=== PATIENT | male | born 1985 ===

== ENCOUNTER 2017-02-01 12:41 | Observation (INO) | payer BC ==
--- NOTE | 2017-02-01 13:24 | ED PDOC ---
HPI: General Adult Chief Complaint (Provider): leg swelling History Per: Patient <Patty Diehl - Last Filed: 02/01/17 18:22> <Kisha Small - Last Filed: 02/05/17 10:15> Time Seen by Provider: 02/01/17 13:02 Chief Complaint (Nursing): Lower Extremity Problem/Injury Additional Complaint(s): 32-year-old male with no past medical history presents to emergency department with intermittent swelling to bilateral lower extremities that started 2 weeks ago. Patient first noticed swelling after he took a 60 mile bike ride. Patient states that he frequently does long bike rides and has not has swelling after previous rides. He denies any trauma or injury. Patient was seen by his primary doctor last week and had dopplers of both legs that were negative for DVT. Patient states that as of 3 days ago he started to notice left-sided chest pain with slight shortness of breath. He also noticed a feeling of fullness and swelling in his neck. Patient denies any recent travel, he denies any dyspnea on exertion. (Patty Diehl) Past Medical History Reviewed: Historical Data, Nursing Documentation, Vital Signs - Medical History PMH: No Chronic Diseases - Surgical History Surgical History: No Surg Hx - Family History Family History: States: No Known Family Hx - Living Arrangements Living Arrangements: With Family - Social History Current smoker - smoking cessation education provided: No Alcohol: None Drugs: Denies <Patty Diehl - Last Filed: 02/01/17 18:22> <Kisha Small - Last Filed: 02/05/17 10:15> Vital Signs: Last Vital Signs Temp 98.3 F 02/02/17 12:15 Pulse 71 02/02/17 12:15 Resp 16 02/02/17 12:15 BP 129/80 02/02/17 12:15 Pulse Ox 97 02/02/17 12:15 - Home Medications Home Medications: Ambulatory Orders Medication Instructions Recorded No Known Home Med 02/01/17 - Allergies Allergies/Adverse Reactions: Allergies Allergy/AdvReac Type Severity Reaction Status Date / Time No Known Allergies Allergy Verified 02/01/17 12:43 Review of Systems ROS Statement: Except As Marked, All Systems Reviewed And Found Negative Constitutional: Negative for: Fever Cardiovascular: Positive for: Chest Pain, Edema (bilateral legs). Negative for : Palpitations, Light Headedness Respiratory: Positive for: Shortness of Breath. Negative for: Cough, SOB with Exertion, Wheezing Gastrointestinal: Negative for: Nausea, Vomiting Musculoskeletal: Positive for: Other (swelling to both legs) Neurological: Negative for: Headache, Dizziness <Patty Diehl - Last Filed: 02/01/17 18:22> Physical Exam - Reviewed Nursing Documentation Reviewed: Yes Vital Signs Reviewed: Yes - Physical Exam Appears: Positive for: Well, Non-toxic, No Acute Distress Skin: Negative for: Rash Eye Exam: Positive for: Normal appearance, EOMI, PERRL Neck: Positive for: Painless ROM Cardiovascular/Chest: Positive for: Regular Rate, Rhythm Respiratory: Positive for: Decreased Breath Sounds. Negative for: Respiratory Distress Gastrointestinal/Abdominal: Positive for: Normal Exam, Soft. Negative for: Tenderness Back: Positive for: Normal Inspection. Negative for: L CVA Tenderness, R CVA Tenderness Extremity: Positive for: Other (edema noted to feet and calves bilaterally, tenderness to calves bilaterally, normal distal sensation, palpable DP pulses bilaterally) Neurologic/Psych: Positive for: Alert, Oriented <Patty Diehl - Last Filed: 02/01/17 18:22> - Laboratory Results Result Diagrams: 02/01/17 13:41 02/01/17 13:41 - ECG O2 Sat by Pulse Oximetry: 98 Pulse Ox Interpretation: Normal - Other Rad bedside chest X-Ray: Interpreted by Me, Viewed By Me, Read By Radiologist X-Ray Interpretation: no active disease CT chest X-Ray: Read By Radiologist X-Ray Interpretation: see below Doppler of both legs X-Ray: Read By Radiologist X-Ray Interpretation: see below <Patty Diehl - Last Filed: 02/01/17 18:22> - Laboratory Results Result Diagrams: 02/01/17 13:41 02/01/17 13:41 <Kisha Small - Last Filed: 02/05/17 10:15> - ECG Interpretation Of ECG: NSR 73 bpm, RAD, reviewed by PA and ED attending. (Patty Diehl) Medical Decision Making <Patty Diehl - Last Filed: 02/01/17 18:22> <Kisha Small - Last Filed: 02/05/17 10:15> Medical Decision Makin32 year old chest pain and leg swelling Plan: CBC CMP Trop BNP CPK UA CXR EKG D-Dimer elevated - bilateral lower extremities dopplers ordered along with CT chest, NS at 125 ml/hr ordered. Doppler: Mildly enlarged lymph nodes seen at the left groin measures 1.7 x 0.6 centimeter. IMPRESSION: No evidence of deep venous thrombosis. CT: IMPRESSION: No evidence of pulmonary embolus. Small opacity at the right lung base may represent atelectasis. Small bilateral pleural effusions larger on the right. Mild cardiomegaly. BNP is 683 Trop is negative CPK is 306 Case discussed in detail with supervising ED attendings Dr. Small and Dr. Vora. Patient will be admitted to medicine building energy consultant, cardiac echo ordered. Patient's PMD is in [facility], patient was admitted to medicine building energy consultant, Dr. Roth. He states to admit to Obs-Tele. Cardiac consult ordered for Dr. Verduzco, building energy consultant cardiology, as per Dr. Roth. Patient agrees with admission, all questions answered. (Patty Diehl) Disposition - Patient ED Disposition Is Patient to be Admitted: Yes - Disposition Disposition Time: 16:33 - Pt Status Changed To: Hospital Disposition Of: Observation - POA Present On Arrival: None <Patty Diehl - Last Filed: 02/01/17 18:22> <Kisha Small - Last Filed: 02/05/17 10:15> - Clinical Impression Clinical Impression: Chest pain, Pleural effusion - Disposition Condition: FAIR Results <Patty Diehl - Last Filed: 02/01/17 18:22> <Kisha Small - Last Filed: 02/05/17 10:15> - Lab Results Lab Results: 02/01/17 02/01/17 02/01/17 14:59 13:41 13:41 WBC 7.3 RBC 4.95 Hgb 14.6 Hct 44.4 MCV 89.7 MCH 29.5 MCHC 32.9 L RDW 13.0 Plt Count 204 MPV 9.1 Neut % (Auto) 61.2 Lymph % (Auto) 25.5 [place] % (Auto) 10.8 H Eos % (Auto) 2.1 Baso % (Auto) 0.4 Neut # 4.5 Lymph # 1.9 [place] # 0.8 Eos # 0.2 Baso # 0.0 D-Dimer, Quantitative 3.69 H Sodium Potassium Chloride Carbon Dioxide Anion Gap BUN Creatinine Est GFR ( Amer) Est GFR (Non-Af Amer) Random Glucose Calcium Total Bilirubin AST ALT Alkaline Phosphatase Total Creatine Kinase Troponin I NT-Pro-B Natriuret Pep Total Protein Albumin Globulin Albumin/Globulin Ratio Urine Color Yellow Urine Clarity Clear Urine pH 6.0 Ur Specific [place] 1.022 Urine Protein >=500 Urine Glucose (UA) Neg Urine Ketones Negative Urine Blood Small Urine Nitrate Negative Urine Bilirubin Negative Urine Urobilinogen 0.2-1.0 Ur Leukocyte Esterase Neg Urine RBC (Auto) 9 H Urine Microscopic WBC 2 02/01/17 13:41 WBC RBC Hgb Hct MCV MCH MCHC RDW Plt Count MPV Neut % (Auto) Lymph % (Auto) [place] % (Auto) Eos % (Auto) Baso % (Auto) Neut # Lymph # [place] # Eos # Baso # D-Dimer, Quantitative Sodium 139 Potassium 4.4 Chloride 105 Carbon Dioxide 25 Anion Gap 13 BUN 22 H Creatinine 1.2 Est GFR ( Amer) > 60 Est GFR (Non-Af Amer) > 60 Random Glucose 88 Calcium 8.6 Total Bilirubin 0.4 AST 69 H ALT 140 H Alkaline Phosphatase 76 Total Creatine Kinase 306 H Troponin I < 0.0120 NT-Pro-B Natriuret Pep 683 H Total Protein 6.1 L Albumin 3.4 L Globulin 2.7 Albumin/Globulin Ratio 1.3 Urine Color Urine Clarity Urine pH Ur Specific [place] Urine Protein Urine Glucose (UA) Urine Ketones Urine Blood Urine Nitrate Urine Bilirubin Urine Urobilinogen Ur Leukocyte Esterase Urine RBC (Auto) Urine Microscopic WBC
[2017-02-01 13:55] LABS: ALKALINE PHOSPHATASE 76 U/L (38-126); ALT/SGPT 140 U/L (21-72); AST/SGOT 69 U/L (17-59); BILIRUBIN,TOTAL 0.4 mg/dl (0.2-1.3); BLOOD UREA NITROGEN 22 mg/dl (9-20); CALCIUM 8.6 mg/dL (8.4-10.2); CARBON DIOXIDE 25 mmol/L (22-30); CHLORIDE 105 mmol/L (98-107); GFR AFRICAN-AMERICAN > 60; GLUCOSE,RANDOM 88 mg/dL (75-110); POTASSIUM 4.4 MMOL/L (3.6-5.0); SODIUM 139 mmol/l (132-148); TOTAL PROTEIN 6.1 G/DL (6.3-8.2)
--- NOTE | 2017-02-01 13:55 | US ---
PROCEDURE: Bilateral lower extremity venous duplex Doppler. HISTORY: pain and swelling to calves bilaterally COMPARISON: None available. TECHNIQUE: Bilateral common femoral, superficial femoral, popliteal and posterior tibial veins were evaluated. Flow was assessed with color Doppler, compressibility, assessment of phasic flow and augmentation response. FINDINGS: COMMON FEMORAL VEIN: Right CFV: Unremarkable. Left CFV: Unremarkable. SUPERFICIAL FEMORAL VEIN: Right SFV: Unremarkable. Left SFV: Unremarkable. POPLITEAL VEIN: Right Popliteal: Unremarkable. Left Popliteal: Unremarkable. POSTERIOR TIBIAL VEIN: Right PTV: Unremarkable. Left PTV: Unremarkable. OTHER FINDINGS: Mildly enlarged lymph nodes seen at the left groin measures 1.7 x 0.6 centimeter. IMPRESSION: No evidence of deep venous thrombosis.
[2017-02-01 14:00] LABS: BASO % 0.4 % (0.0-2.0); EOS # 0.2 K/uL (0.0-0.7); EOS % 2.1 % (0.0-4.0); HEMATOCRIT 44.4 % (35.0-51.0); LYMPH # 1.9 K/uL (1.0-4.3); LYMPH % 25.5 % (20.0-40.0); MEAN CELL VOLUME 89.7 fl (80.0-94.0); MEAN CORPUSCULAR HEMOGLOBIN 29.5 pg (27.0-31.0); MEAN CORPUSCULAR HGB CONC 32.9 g/dL (33.0-37.0); MEAN PLATELET VOLUME 9.1 fl (7.2-11.7); MONO # 0.8 K/uL (0.0-0.8); MONO % 10.8 % (0.0-10.0); NEUT # 4.5 K/uL (1.8-7.0); NEUT % 61.2 % (50.0-75.0); WHITE BLOOD COUNT 7.3 K/uL (4.8-10.8)
[2017-02-01 14:04] LABS: ALB/GLOB RATIO 1.3 (1.0-2.1)
--- NOTE | 2017-02-01 14:34 | RAD ---
HISTORY: chest pain COMPARISON: No prior. FINDINGS: LUNGS: No active pulmonary disease. PLEURA: No significant pleural effusion identified, no pneumothorax apparent. CARDIOVASCULAR: Normal. OSSEOUS STRUCTURES: No significant abnormalities. VISUALIZED UPPER ABDOMEN: Normal. OTHER FINDINGS: None. IMPRESSION: No active disease.
[2017-02-01] MEDS ORDERED: Sodium Chloride 0.9% 1,000 ML IV STA (14:41)
[2017-02-01 15:10] LABS: RBC URINE 9 /hpf (0-3); URINE BILIRUBIN NEGATIVE (NEGATIVE); URINE BLOOD SMALL (NEGATIVE); URINE COLOR YELLOW (YELLOW); URINE GLUCOSE (UA) NEG (Normal); URINE KETONE NEGATIVE (NEGATIVE); URINE LEUKOCYTE ESTERASE NEG Leu/uL (Negative); URINE PROTEIN >=500 mg/dL (NEGATIVE); URINE UROBILINOGEN 0.2-1.0 mg/dL (0.2-1.0); WBC URINE 2 /hpf (0-5)
--- NOTE | 2017-02-01 15:47 | CT ---
PROCEDURE: CT Chest with contrast (Pulmonary Angiogram) HISTORY: chest pain, shortness of breath, leg edema COMPARISON: None available. TECHNIQUE: Axial computed tomography images were obtained of the chest in the pulmonary arterial phase of enhancement. Coronal and sagittal reformatted images were created and reviewed. Intravenous contrast dose: 95 mL Visipaque 320 Radiation dose: Total exam DLP = 350.88 mGy-cm. This CT exam was performed using one or more of the following dose reduction techniques: Automated exposure control, adjustment of the mA and/or kV according to patient size, and/or use of iterative reconstruction technique. FINDINGS: PULMONARY ARTERIES: Unremarkable. No pulmonary embolism. AORTA: No acute findings. No thoracic aortic aneurysm. LUNGS: Small opacities at the right lung base may represent atelectasis. Otherwise no evidence of acute pathology in the lungs. PLEURAL SPACES: Small bilateral pleural effusion larger on the right. HEART: Mild cardiomegaly. LYMPH NODES: No lymphadenopathy. BONES, CHEST WALL: Unremarkable. No fracture or destructive lesion OTHER FINDINGS: Unremarkable. IMPRESSION: No evidence of pulmonary embolus. Small opacity at the right lung base may represent atelectasis. Small bilateral pleural effusions larger on the right. Mild cardiomegaly.
--- NOTE | 2017-02-02 06:53 | CP.PCM.CON ---
History of Present Illness - History of Present Illness History of Present Illness: 32-year-old male with no past medical history presents to emergency department with intermittent swelling to bilateral lower extremities that started 2 weeks ago. Patient first noticed swelling after he took a 60 mile bike ride. Patient states that he frequently does long bike rides and has not has swelling after previous rides. The swelling is usually worse at the end of the day / less in the AM This AM there is no edema Patient was seen by his primary doctor last week and had dopplers of both legs that were negative for DVT. Patient states that as of 3 days ago he started to notice left-sided chest pain described as sharp stabbing no relation to exertion Troponin: neg BNP: 683 EKG: WNL Echo: pending CXR: WNL / no pleural effusions >Total Protein: 6.1 !! >Albumin: 3.4 !! Past Patient History - Past Medical History & Family History Past Medical History?: No - Past Social History Smoking Status: Never Smoked - CARDIAC Hx Cardiac Disorders: No - PULMONARY Hx Respiratory Disorders: No - NEUROLOGICAL Hx Neurological Disorder: No - HEENT Hx HEENT Problems: No - RENAL Hx Chronic Kidney Disease: No - ENDOCRINE/METABOLIC Hx Endocrine Disorders: No - HEMATOLOGICAL/ONCOLOGICAL Hx Blood Disorders: No - INTEGUMENTARY Hx Dermatological Problems: No - MUSCULOSKELETAL/RHEUMATOLOGICAL Hx Musculoskeletal Disorders: No Hx Falls: No - GENITOURINARY/GYNECOLOGICAL Hx Genitourinary Disorders: No - PSYCHIATRIC Hx Psychophysiologic Disorder: No Hx Substance Use: No - SURGICAL HISTORY Hx Surgeries: No - ANESTHESIA Hx Anesthesia: No Meds Allergies/Adverse Reactions: Allergies Allergy/AdvReac Type Severity Reaction Status Date / Time No Known Allergies Allergy Verified 02/01/17 12:43 - Medications Medications: Current Medications Aspirin (Ecotrin) 81 mg PO DAILY [facility] Last Admin: 02/01/17 23:37 Dose: 81 mg Enoxaparin Sodium (Lovenox) 40 mg SC DAILY [facility] PRN Reason: Protocol Physical Exam - Respiratory Exam Respiratory Exam: NORMAL BREATHING PATTERN - Cardiovascular Exam Cardiovascular Exam: REGULAR RHYTHM Results - Vital Signs Recent Vital Signs: Last Vital Signs Temp 97.8 F 02/02/17 05:22 Pulse 59 L 02/02/17 05:22 Resp 19 02/02/17 05:22 BP 132/72 02/02/17 05:22 Pulse Ox 95 02/02/17 05:22 - Labs Result Diagrams: 02/01/17 13:41 02/01/17 13:41 Labs: Laboratory Results - last 24 hr 02/01/17 23:41 Troponin I < 0.0120 Assessment & Plan (1) Pedal edema Assessment and Plan: Patient is to have Echo today/ will review Also Pt's Protein and Albumin levels are low ? Status: Acute (2) Chest pain Assessment and Plan: Doubt that this c/o chest pain is cardiac in nature Status: Acute
[2017-02-02] MEDS ORDERED: Dextrose 5%/0.9% NS 1,000 ML IV SCH (07:15)
[2017-02-02 08:02] VITALS: RESP 16; TEMP 98.3
[2017-02-02] MEDS ORDERED: Enoxaparin 40 mg Syringe SC SCH (09:00)
[2017-02-02 12:16] VITALS: BP 129/80; PULSE 71; O2SAT 97
--- NOTE | 2017-02-02 12:21 | CARD ---
APPROVED REPORT EKG Measurement Heart [id number] SC 130P60 [id number] <Conclusion> Normal sinus rhythm Incomplete right bundle branch block Borderline ECG
--- NOTE | 2017-02-02 12:30 | CARD ---
APPROVED REPORT EKG Measurement Heart [id number] ND 124P58 [id number] <Conclusion> Normal sinus rhythm Possible Left atrial enlargement Rightward axis RSR' or QR pattern in V1 suggests right ventricular conduction delay Borderline ECG
--- NOTE | 2017-02-02 12:31 | CARD ---
APPROVED REPORT EKG Measurement Heart [id number] TN 134P44 [id number] <Conclusion> Normal sinus rhythm Normal ECG excessive baseline artefact
--- NOTE | 2017-02-02 13:15 | CP.PCM.DIS ---
Provider - Provider Date of Admission: 02/01/17 18:03 Attending physician: Azael Roth MD Time Spent in preparation of Discharge (in minutes): 30 Diagnosis - Discharge Diagnosis (1) Rhabdomyolysis Status: Acute (2) Chest pain Status: Acute (3) Pedal edema Status: Acute Hospital Course - Lab Results Lab Results: Most Recent Lab Values WBC 7.3 K/uL (4.8-10.8) 02/01/17 13:41 RBC 4.95 Mil/uL (4.40-5.90) 02/01/17 13:41 Hgb 14.6 g/dL (12.0-18.0) 02/01/17 13:41 Hct 44.4 % (35.0-51.0) 02/01/17 13:41 MCV 89.7 fl (80.0-94.0) 02/01/17 13:41 MCH 29.5 pg (27.0-31.0) 02/01/17 13:41 MCHC 32.9 g/dL (33.0-37.0) L 02/01/17 13:41 RDW 13.0 % (11.5-14.5) 02/01/17 13:41 Plt Count 204 K/uL (130-400) 02/01/17 13:41 MPV 9.1 fl (7.2-11.7) 02/01/17 13:41 Neut % (Auto) 61.2 % (50.0-75.0) 02/01/17 13:41 Lymph % (Auto) 25.5 % (20.0-40.0) 02/01/17 13:41 [place] % (Auto) 10.8 % (0.0-10.0) H 02/01/17 13:41 Eos % (Auto) 2.1 % (0.0-4.0) 02/01/17 13:41 Baso % (Auto) 0.4 % (0.0-2.0) 02/01/17 13:41 Neut # 4.5 K/uL (1.8-7.0) 02/01/17 13:41 Lymph # 1.9 K/uL (1.0-4.3) 02/01/17 13:41 [place] # 0.8 K/uL (0.0-0.8) 02/01/17 13:41 Eos # 0.2 K/uL (0.0-0.7) 02/01/17 13:41 Baso # 0.0 K/uL (0.0-0.2) 02/01/17 13:41 D-Dimer, Quantitative 3.69 mg/L FEU (0-0.50) H 02/01/17 13:41 Sodium 139 mmol/l (132-148) 02/01/17 13:41 Potassium 4.4 MMOL/L (3.6-5.0) 02/01/17 13:41 Chloride 105 mmol/L (98-107) 02/01/17 13:41 Carbon Dioxide 25 mmol/L (22-30) 02/01/17 13:41 Anion Gap 13 (10-20) 02/01/17 13:41 BUN 22 mg/dl (9-20) H 02/01/17 13:41 Creatinine 1.2 mg/dL (0.8-1.5) 02/01/17 13:41 Est GFR ( Amer) > 60 02/01/17 13:41 Est GFR (Non-Af Amer) > 60 02/01/17 13:41 Random Glucose 88 mg/dL (75-110) 02/01/17 13:41 Calcium 8.6 mg/dL (8.4-10.2) 02/01/17 13:41 Total Bilirubin 0.4 mg/dl (0.2-1.3) 02/01/17 13:41 AST 69 U/L (17-59) H 02/01/17 13:41 ALT 140 U/L (21-72) H 02/01/17 13:41 Alkaline Phosphatase 76 U/L (38-126) 02/01/17 13:41 Total Creatine Kinase 306 U/L (55-170) H 02/01/17 13:41 Troponin I 0.0150 ng/mL (0.00-0.120) 02/02/17 07:15 NT-Pro-B Natriuret Pep 683 pg/ml (0-450) H 02/01/17 13:41 Total Protein 6.1 G/DL (6.3-8.2) L 02/01/17 13:41 Albumin 3.4 g/dL (3.5-5.0) L 02/01/17 13:41 Globulin 2.7 gm/dL (2.2-3.9) 02/01/17 13:41 Albumin/Globulin Ratio 1.3 (1.0-2.1) 02/01/17 13:41 Urine Color Yellow (YELLOW) 02/01/17 14:59 Urine Clarity Clear (Clear) 02/01/17 14:59 Urine pH 6.0 (5.0-8.0) 02/01/17 14:59 Ur Specific [place] 1.022 (1.003-1.030) 02/01/17 14:59 Urine Protein >=500 mg/dL (NEGATIVE) 02/01/17 14:59 Urine Glucose (UA) Neg mg/dL (Normal) 02/01/17 14:59 Urine Ketones Negative mg/dL (NEGATIVE) 02/01/17 14:59 Urine Blood Small (NEGATIVE) 02/01/17 14:59 Urine Nitrate Negative (NEGATIVE) 02/01/17 14:59 Urine Bilirubin Negative (NEGATIVE) 02/01/17 14:59 Urine Urobilinogen 0.2-1.0 mg/dL (0.2-1.0) 02/01/17 14:59 Ur Leukocyte Esterase Neg [place]/uL (Negative) 02/01/17 14:59 Urine RBC (Auto) 9 /hpf (0-3) H 02/01/17 14:59 Urine Microscopic WBC 2 /hpf (0-5) 02/01/17 14:59 - Hospital Course Hospital Course: pedal edema and chest pain resolved Discharge Exam - Head Exam Head Exam: ATRAUMATIC, NORMAL INSPECTION, NORMOCEPHALIC - Eye Exam Eye Exam: EOMI, Normal appearance, PERRL Pupil Exam: NORMAL ACCOMODATION, PERRL - GI/Abdominal Exam GI & Abdominal Exam: Normal Bowel Sounds - Rectal Exam Rectal Exam: NORMAL INSPECTION - Neurological Exam Neurological exam: Alert, CN II-XII Intact, Normal Gait, Oriented x3, Reflexes Normal - Psychiatric Exam Psychiatric exam: Normal Affect, Normal Mood - Skin Skin Exam: Dry, Intact, Normal Color, Warm Discharge Plan - Follow Up Plan Condition: FAIR Disposition: HOME/ ROUTINE Patient education suggested?: Yes Additional Instructions: discharge home today follow up with pmd advised to request copy of echo via medical records
--- NOTE | 2017-02-02 13:25 | CARD ---
APPROVED REPORT EXAM: Two-dimensional and M-mode echocardiogram with Doppler and color Doppler. Other Information Quality : ExcellentRhythm : NSR INDICATION Chest Pain Elevated BNP 2D DIMENSIONS IVSd1.07 (0.7-1.1cm)LVDd4.89 (3.9-5.9cm) LVOT Diameter2.03 (1.8-2.4cm)PWd1.05 (0.7-1.1cm) IVSs1.10 (0.8-1.2cm)LVDs3.71 (2.5-4.0cm) FS (%) 24.2 %PWs0.77 (0.8-1.2cm) M-Mode DIMENSIONS Left Atrium (MM)4.00 (2.5-4.0cm)IVSd0.74 (0.7-1.1cm) Aortic Root2.65 (2.2-3.7cm)LVDd6.00 (4.0-5.6cm) Aortic Cusp Exc.1.85 (1.5-2.0cm)PWd0.82 (0.7-1.1cm) IVSs1.68 cmFS (%) 45 % LVDs3.29 (2.0-3.8cm)PWs1.65 cm Mitral Valve MV E Zfudoqaa923.0cm/sMV DECEL [id number] A Vznpdqry39.9cm/s MV DMD72aeZ/A ratio3.0MVA (PHT)5.23cm2 TDI Lateral E' Peak V16.70cm/sMedial E' Peak V15.16cm/sE/Lateral E'6.6 E/Medial E'7.3 Pulmonary Valve PV Peak Snuycjus688.7cm/s LEFT VENTRICLE The left ventricle is normal size. There is normal left ventricular wall thickness. The left ventricular function is normal. The left ventricular ejection fraction is - 70%. There is normal LV segmental wall motion. The left ventricular diastolic function is normal. No left ventricle thrombus noted on this study. There is no ventricular septal defect visualized. There is no left ventricular aneurysm. There is no mass noted in the left ventricle. RIGHT VENTRICLE The right ventricle is normal size. There is normal right ventricular wall thickness. The right ventricular systolic function is normal. ATRIA The left atrium size is normal. There is no thrombus suspected in the left atrium. The right atrium size is normal. The interatrial septum is intact with no evidence for an atrial septal defect. AORTIC VALVE The aortic valve is normal in structure and function. No aortic regurgitation is present. There is no aortic valvular stenosis. MITRAL VALVE The mitral valve is normal in structure and function. There is no evidence of mitral valve prolapse. There is no mitral valve stenosis. Mitral regurgitation is trace. TRICUSPID VALVE The tricuspid valve is normal in structure and function. There is trace tricuspid regurgitation. There is no tricuspid valve prolapse or vegetation. There is no tricuspid valve stenosis. PULMONIC VALVE The pulmonary valve is normal in structure and function. There is trivial pulmonic valvular regurgitation. GREAT VESSELS The aortic root is normal in size. The IVC is normal in size and collapses >50% with inspiration. PERICARDIAL EFFUSION The pericardium appears normal. There is no pleural effusion. <Conclusion> The left ventricle is normal in size and wall thickness. The left ventricular function is normal. The left ventricular ejection fraction is - 70%. The left atrium, right ventricle and right atrium are normal in size. The mitral, aortic and tricuspid valves are normal. There is trace mitral regurgitation and trace tricuspid regurgitation
--- NOTE | 2017-02-02 13:57 | HP ---
HISTORY OF PRESENT ILLNESS: The patient is a 32-year-old male who was admitted via the Emergency Ro om because of swelling of the lower extremities for 2 weeks prior to presentation associated with lef t-sided chest pain the day of admission. He indicates that he rides a bike at least 60 miles every d ay and had developed a swelling over the past several weeks. He came to the Emergency Department, be cause of chest pains was advised workup and therapy. PAST MEDICAL HISTORY: He has an unremarkable past medical history. FAMILY HISTORY: Nonrevealing. SOCIAL HISTORY: Does not drink or smoke. REVIEW OF SYSTEMS: Unremarkable. PHYSICAL EXAMINATION: GENERAL: The patient is alert and oriented. VITAL SIGNS: Stable. HEENT: Mouth shows fair hygiene. NECK: JVP flat. LUNGS: Clear. HEART: Regular. No murmurs or gallops. ABDOMEN: Soft, nontender, no organomegaly. EXTREMITIES: No edema or cyanosis noted. No tenderness present. LABORATORY DATA: Remarkable for EKG that is within normal limits. BNP 683. WBC 7.3, hemoglobin 14. 6, troponin less than 0.012, ALT 140. CPK 306. EKG: Regular sinus rhythm. Echocardiogram official report pending, but reviewed and shows no cardiac pathology, but official report is pending. Chest x-ray and CT of the chest unremarkable. IMPRESSION: Compatible with acute rhabdomyolysis with atypical chest pain. PLAN: IV hydration. The patient to be discharged home today. Advise increase oral hydration. Foll ow up with his primary care physician as an outpatient. He is also advised to request official copy of the echocardiogram. Azael Roth MD cc: 62 TT: 02/02/2017 13:56:49 [email or web address]
== END 2017-02-02 15:00 ==
LOC: H.ER 12:41 → H.ERHOLD 18:03 → H.TEL 21:18
PROVIDERS: ADMIT Internal Medicine Pulmonary Disease; ATTEND Internal Medicine Pulmonary Disease
DX: M62.82 Rhabdomyolysis (principal); R07.89 Other chest pain
CPT/HCPCS: 36415; 71010; 71275; 80053; 81003; 82550; 83880; 84484; 85025; 85378; 93005; 93306; 93970; 99285; G0378; J7040; J7042